=== PATIENT | male | born 1955 | race Caucasian/White ===

== ENCOUNTER 2020-01-30 13:05 | Emergency (ER) | payer BC ==
[2020-01-30 13:26] LABS: Glucose,Whole Blood 299 mg/dL (75-99)
--- NOTE | 2020-01-30 13:31 | ED ---
General Adult HPI - General Stated complaint: cardiac arrest - History of Present Illness Initial comments: Dictation was produced using [employer] dictation software. please excuse any grammatical, word or spelling errors. This patient was cared for during a federal and state declared state of emergency secondary to Covid 19 Chief Complaint: 64-year-old male with unknown medical history presents after cardiac arrest History of Present Illness: Patient 64-year-old male he had underwent approximately 35 minutes of CPR prior to coming to the emergency department. According to EMS patient walked out from the attic when all of a sudden he collapsed. He is unclear if this event was witnessed or not. Patient had CPR administered by EMS. He underwent several doses of epinephrine and defibrillation attempts. EMS was not able to obtain any sort of return of spontaneous circulation. Unable to obtain R was secondary to mental status PHYSICAL EXAM: General Impression: Cyanotic, unresponsive, obese HEENT: Normocephalic atraumatic, extra-ocular movements intact, pupils equal and 3 mm intubated Cardiovascular: Pulseless Chest: Bilateral breath sounds Abdomen: abdomen soft, nondistended Musculoskeletal:no peripheral edema Motor: Flaccid Skin: Cyanotic, mottled ED course: 64-year-old male presents with cardiac arrest. Prior to coming to the emergency department patient was coded for approximately 35 minutes according to EMS. There is unknown medical history for the patient. At no point did EMS obtained a return of spontaneous circulation. Furthermore, no organized rhythm was obtained. Patient was immediately placed in trauma resuscitation bay 2. CPR was continued. There is concern for intractable V. fib. Multiple shocks were attempted with no return of spontaneous circulation organized rhythm. Patient was given 5 mg of IV metoprolol and dual defibrillation was attempted with no return of spontaneous circulation. At no point did patient have a palpable pulse. [id number] bedside ultrasound was performed showing no organized cardiac activity. Patient underwent a total 41 minutes of CPR with no improvement. CPR was stopped at time of was announced. Family will be updated. Review of Systems ROS Statement: Those systems with pertinent positive or pertinent negative responses have been documented in the HPI. ROS Other: All systems not noted in ROS Statement are negative. Medical Decision Making - Lab Data Lab Results 01/30/20 Range/Units 13:17 POC Glucose (mg/dL) 299 H (75-99) mg/dL POC Glu Wet Char Conveyor Tender ID Tiffanie Guzman Disposition Clinical Impression: Cardiac arrest Disposition: Condition: Fair Referrals: None,Stated [Primary Care Provider] - 1-2 days Time of Disposition: 13:38 Preliminary Cause of : intractable ventricular fibrillation
== END 2020-01-30 17:29 | disposition expired ==
LOC: EC 13:05
DX: I46.9 Cardiac arrest, cause unspecified (principal)
CPT/HCPCS: 36415; 92950; 99285